=== PATIENT | female | born 1980 | race Caucasian/White ===

== ENCOUNTER 2017-10-22 02:52 | Emergency (ER) | payer SELFPAY ==
[~2017-10-22] VITALS: Ht 162.6 cm; Wt 49.9 kg
[2017-10-22 02:59] VITALS: BP 142/70
--- NOTE | 2017-10-22 03:02 | NUR ---
TO LOBBY, A/W BED, AMB, STABLE ERMD NOTED
--- NOTE | 2017-10-22 03:26 | NUR ---
PT AMBULATED TO CHAIR B. RN ASSESSING PT
--- NOTE | 2017-10-22 03:28 | NUR ---
PATIENT PRESENTS TO ED WITH VOMITING. PT STATES, "I'VE BEEN VOMITING ALL DAY AND I DON'T FEEL GOOD. REPORTS N/V/D; SKIN IS PINK/WARM/DRY; AAOX4 WITH EVEN AND STEADY GAIT; LUNGS CLEAR BL; HR EVEN AND REGULAR; PT DENIES ANY FEVER, CP, SOB, OR COUGH AT THIS TIME; PATIENT STATES PAIN OF 9/10 AT THIS TIME; VSS; PATIENT POSITIONED FOR COMFORT; PT IN CHAIR; ER MD MADE AWARE OF PT STATUS.
--- NOTE | 2017-10-22 03:29 | NUR ---
PATIENT UNABLE TO PROVIDE URINE AT THIS TIME.
--- NOTE | 2017-10-22 03:49 | NUR ---
PHLEB AT WITH PT FOR LAB DRAWS
[2017-10-22 04:01] LABS: HEMATOCRIT 37.7 % (36-48); HEMOGLOBIN 12.6 g/dL (12.0-16.0); MEAN CORPUSCULAR HEMOGLOBIN 28 pg (27-31); MEAN CORPUSCULAR HGB CONC 33 g/dL (33-37); MEAN CORPUSCULAR VOLUME 83.9 fL (80-94); PLATELET COUNT (AUTO) 278 K/uL (140-450); RED BLOOD CELL COUNT(AUTO) 4.49 MIL/uL (4.20-5.40); RED CELL DISTRIBUTION WIDTH 13.1 % (11.6-13.7); WHITE BLOOD COUNT (AUTO) 10.5 K/uL (4.8-10.8)
--- NOTE | 2017-10-22 04:15 | NUR ---
PT PROVIDED URINE AT THIS TIME.
--- NOTE | 2017-10-22 04:16 | NUR ---
PT AMBULATED TO BED 4
[2017-10-22 04:17] LABS: ALBUMIN 3.9 g/dL (3.4-5.0); ANION GAP 12.1 (8-16); CARBON DIOXIDE 29.7 mmol/L (21-32); CREATININE 0.7 mg/dL (0.6-1.3); POTASSIUM 4.8 mmol/L (3.5-5.1); TOTAL BILIRUBIN 0.3 mg/dL (0.0-1.0)
[2017-10-22 04:31] LABS: LYMPHOCYTES % (MANUAL) 16 % (20-46); MONOCYTES % (MANUAL) 1 % (5-12)
[2017-10-22 04:55] VITALS: BP 137/66
--- NOTE | 2017-10-22 04:55 | NUR ---
Patient discharged with v/s stable. Written and verbal after care instructions given and explained. Patient alert, oriented and verbalized understanding of instructions. Ambulatory with steady gait. All questions addressed prior to discharge. ID band removed. Patient advised to follow up with PMD. Rx of Tramadol, Zofran ODT, Mylanta, and Protonix given. Patient educated on indication of medication including possible reaction and side effects. Opportunity to ask questions provided and answered.
== END 2017-10-22 04:55 | disposition home or self-care (01) ==
LOC: MED 02:52 → EDBD 02:52 → MED 04:55
DX: R10.13 Epigastric pain (principal); R11.10 Vomiting, unspecified
CPT/HCPCS: 36415; 80053; 81002; 81025; 83690; 85025; 99284

== ENCOUNTER 2017-12-18 19:24 | Emergency (ER) | payer SELFPAY ==
[~2017-12-18] VITALS: Ht 162.6 cm; Wt 52.2 kg
[2017-12-18 19:32] VITALS: BP 121/73
[2017-12-18 22:14] VITALS: BP 121/73
== END 2017-12-18 22:13 | disposition home or self-care (01) ==
LOC: MED 19:24
DX: M25.512 Pain in left shoulder (principal)
CPT/HCPCS: 73030; 99284